=== PATIENT | male | born 1990 | race Caucasian/White ===

== ENCOUNTER 2024-08-13 14:42 | Emergency (ER) | payer BC, SELFPAY ==
[2024-08-13 14:43] VITALS: BP 171/109
[2024-08-13] MEDS: ATIVAN 1 MG PO (15:49)
--- NOTE | 2024-08-13 16:11 | ED.GENMED ---
History of Present Illness
General
Chief Complaint: Depression
Source: patient
Exam Limitations: none
Time Seen by Provider: 08/13/24 15:16
Nursing documentation reviewed up to this point in time: agreed with
History of Present Illness
History of Present Illness:
Patient with history of anxiety and depression, currently taking Pristiq x 1 week as ordered by psychiatrist via Zoom, presents to ED secondary to worsening symptoms, consisting of frequent panic attacks and hyperventilation, along with decreased
appetite and lack of sleep. Denies suicidal or homicidal ideation. Patient states that he he has been dealing with the symptoms for a long period of time, and denies any new inciting events. Denies recent illness. Denies weight loss. Denies
taking any other illicit medications.
Review of Systems
Review of Systems
Allergies reviewed?: Yes
All Other Systems: ROS reviewed and negative except as documented in HPI and ROS
Constitutional: Reports no symptoms
Respiratory: Reports no symptoms
Cardiac: Reports palpitations
ABD/GI: Reports no symptoms
Musculoskeletal: Reports no symptoms
Skin: Reports no symptoms
Neurological: Reports no symptoms
Psychiatric: Reports depression and anxiety
Phy Exam
Physical Exam
Physical Exam:
Physical Exam
General: mild distress, not acutely ill. afebrile.
Head: nc/at. eomi
Neck: supple. normal range of motion
Heart: s1/s2 regular rate and rhythm, no murmur. equal radial pulses.
Lungs: no acute respiratory distress. clear bilaterally
Abdomen: normal bowel sounds. not tender.
Neuro: alert and oriented. no focal neurological deficits
Skin: no rash
Psychiatric: well kept. interactive and cooperative, but anxious appearing
Extremities: no edema. no calf tenderness.
Course
Orders/Labs/Results
Orders:
Orders
08/13/24 15:40
Crisis Consult Urgent
Reason for Consult: anxiety/depression
Lorazepam [Ativan] 1 mg PO NOW STA
Vital Signs
Initial and Last Documented VS:
Initial Vital Signs
Temp Pulse Resp BP Pulse Ox
99.8 F 116 18 171/109 99
08/13/24 14:43 08/13/24 14:43 08/13/24 14:43 08/13/24 14:43 08/13/24 14:43
Last Documented Vital Signs
Temp Pulse Resp BP Pulse Ox
99.8 F 92 17 144/102 96
08/13/24 14:43 08/13/24 17:47 08/13/24 17:47 08/13/24 17:47 08/13/24 17:47
MDM/Problems Addressed
MDM/Problems Addressed:
History and exam consistent with likely ongoing anxiety episodes. Otherwise, patient is afebrile, hemodynamically stable, and nontoxic-appearing.
Patient evaluated in the emergency department by [facility] and [facility] worker. Patient provided with outpatient resources, including virtual evaluation followed by in person evaluation. Patient feels comfortable going home without treatment plan.
*Critical Care Note
Total Time (30-74mins, 75-104mins- exclusive of procedures): Not Applicable
ED Attending Note
-
Portions of this chart may have been created with voice recognition software.� Occasional wrong word or��sound alike� substitutions may have occurred due to the inherent limitations of voice recognition software.
Discharge Plan
Departure
Patient Disposition: Home (Routine Discharge)
Date of Disposition: 08/13/24
Time of Disposition: 17:42
Patient with high blood pressure during this ER visit?: Yes
Discharge Problem:
Anxiety
Instructions: Anxiety, Adult ED
Prescriptions:
New
lorazepam [Ativan] 0.5 mg tablet
0.5 mg PO TID PRN (Reason: anxiety) Qty: 10 0RF
Referrals:
UNKNOWN - PT DOES,NOT KNOW [Family Provider] -
Activity Restrictions/Additional Instructions:
As discussed, please follow-up with referred outpatient resources for further evaluation and treatment. Your prescription has been sent electronically to [facility] in [place].
Interventions
Interventions:
*Risk Screen - Suicide Last Done: 08/13/24 14:43
*General Assessment Last Done: 08/13/24 14:43
*Neglect/Abuse Screening Last Done: 08/13/24 14:43
*Nursing Disposition Last Done: 08/13/24 17:48
ED-Psychological Assessment Last Done: 08/13/24 17:00
Discharge Date and Time
Discharge Date/Time: 08/13/24 17:50
Print Language: YAKUT
[2024-08-13 17:47] VITALS: BP 144/102
== END 2024-08-13 17:50 | disposition home or self-care (01) ==
LOC: EMR 14:42
PROVIDERS: EMERGENCY PHYSICIAN Emergency Medicine
DX: F41.9 Anxiety disorder, unspecified (principal); Z79.899 Other long term (current) drug therapy
CPT/HCPCS: 99283